=== PATIENT | female | born 1950 | race Caucasian/White ===

== ENCOUNTER 2018-01-22 13:07 | Inpatient (IN) | payer MEDICARE ==
[~2018-01-22] VITALS: Ht 167.6 cm; Wt 69.2 kg
[~2018-01-22 13:07] MED LIST: ASPIR 8181 MG; CRESTOR10 MG PO; LASIX40 MG PO; LEVEMIR100 UNIT/1; NEXIUM20 MG; NORCO 10MG-325MG1 EA; NOVOLOG100 UNIT/1; PLAVIX75 MG PO; SINGULAIR10 MG; ZIAC 5-6.25 MG1 EACH
--- OUTSIDE RECORDS SUMMARY | 2018-01-22 13:11 | XMS REPORT ---
Author Author [facility] [place] Address Unknown Phone Unavailable Care Team Providers Care Access Database Developer Name Role Phone DANIELELY HUDDLESTONHURI Unavailable Unavailable BAURSULA Unavailable Unavailable Problems This patient has no known problems. Allergies, Adverse Reactions, Alerts This patient has no known allergies or adverse reactions. Medications This patient has no known medications. Results Test Description Test Time Test Comments Text Results Atomic Results Result Comments BLOOD CULTURE 2017-07-06 07:41:00 Culture Observations (test code=COB1) NO GROWTH AFTER 5 DAYS BLOOD [id number] 07:41:00* Test Item Value Reference Range Comments Culture Observations (test code=COB1) NO GROWTH AFTER 5 DAYS GLUCOMETER GLUCOSE- LAB USE [id number] 16:19:00* Test Item Value Reference Range Comments GLUCOMETER (test code=GMG) 203 mg/dL 70-100 Meter ID: [id number]: [id number] AMRITA KEYESEL GLUCOMETER GLUCOSE- LAB USE [id number] 11:24:00* Test Item Value Reference Range Comments GLUCOMETER (test code=GMG) 240 mg/dL 70-100 Meter ID: [id number]: [id number] NASIMA MINKS GLUCOMETER GLUCOSE- LAB USE [id number] 06:16:00* Test Item Value Reference Range Comments GLUCOMETER (test code=GMG) 246 mg/dL 70-100 Meter ID: [id number]: 5304 ATIF RODRIGUEZ BASIC METABOLIC PANEL *WW*2017-07-02 06:09:00* Test Item Value Reference Range Comments GLUCOSE (test code=06D) 241 mg/dL 75-100 SODIUM (test code=01A) 137 mmol/L 136-145 POTASSIUM (test code=01B) 3.6 mmol/L 3.6-5.1 CHLORIDE (test code=04A) 100 mmol/L 98-107 CO2 (test code=02A) 31 mmol/L 22-32 ANION GAP (test code=ANG) 9.6 mmol/L BUN (test code=05D) 19 mg/dL 7-18 CREATININE (test code=03E) 0.6 mg/dL 0.4-1.1 BUN/CREA (test code=BCR) 31 12-20 CALCIUM (test code=09D) 7.5 mg/dL 8.3-9.5 CBC (INCLUDES AUTOMATED DIFFERENTIAL)*[id number] 05:48:00* Test Item Value Reference Range Comments WBC (test code=WBC) 7.1 10\S\3/uL 4.5-11.0 RBC (test code=RBC) 4.33 10\S\6/uL 3.80-5.80 HGB (test code=HBG) 13.3 g/dL 12.0-15.5 HCT (test code=HCT) 39.1 % 35.0-44.0 MCV (test code=MCV) 90.3 fL 81.0-99.0 MCH (test code=MCH) 30.7 pg 27.0-31.0 MCHC (test code=MCHC) 34.0 g/dL 32.0-36.0 RDW (test code=RDW) 12.4 % 11.5-14.5 PLT (test code=PLT) 202 10\S\3/uL 130-400 MPV (test code=MPV) 10.2 fL 9.4-12.4 NEUTROP # (test code=NE#) 3.9 10\S\3/uL 1.6-8.0 LYMPH # (test code=LY#) 2.4 10\S\3/uL 1.1-3.5 MONOCYTE # (test code=MO#) 0.7 10\S\3/uL 0.0-1.1 EOSINOPH # (test code=EO#) 0.1 10\S\3/uL 0.0-0.7 BASOPHIL # (test code=BA#) 0.0 10\S\3/uL 0.0-0.3 IG # (test code=IG#) 0.02 10\S\3/uL 0.00-0.06 NRBC # (test code=NRBC#) 0.00 10\S\3/uL 0.00-0.01 NEUTROPH % (test code=NE%) 54.5 % 35.0-73.0 LYMPH % (test code=LY%) 33.8 % 20.0-55.0 MONO % (test code=MO%) 9.7 % 2.5-10.0 EOSINOPH % (test code=EO%) 1.4 % 0.0-5.0 BASOPHIL % (test code=BA%) 0.3 % 0.0-2.0 IG % (test code=IG%) 0.3 % 0.0-0.8 NRBC% (test code=NRBC%) 0.0 % 0.0-0.2 MANDIFF (test code=WMDIFF) NO NO RBC MORPH (test code=WRBCMOR) NORMAL GLUCOMETER GLUCOSE- LAB USE [id number] 19:32:00* Test Item Value Reference Range Comments GLUCOMETER (test code=GMG) 256 mg/dL 70-100 Meter ID: [id number]: 5304 ATIF RODRIGUEZ GLUCOMETER GLUCOSE- LAB USE [id number] 15:48:00* Test Item Value Reference Range Comments GLUCOMETER (test code=GMG) 206 mg/dL 70-100 DAILY MAINTENANCEMeter ID: [id number]: 5354 NAYE NEW U/S CAROTID COLOR DOPPLER NIESHA*WW*2017-07-01 15:42:29Duplex carotid ultrasound.Clinical History: Syncope Comparison: None. [address] and Findings: Deras scale, color and pulsed Doppler imaging were utilized. There is approximately 54% luminal narrowing from hyperechoic atheroscleroticplaque at the left carotid bulb. Both carotid systems demonstrate normalwaveforms with brisk systolic upstrokes.The velocities on the right are as follows in cm/s:Common carotid artery peak systolic: 70.9 cm/ s.Common carotid artery end-diastolic 8.2 cm/s.Internal carotid artery peak systolic: 54.3 cm/s.Internal carotid artery end-diastolic: 10.1 cm/s.The velocities on the left are as follows:Common carotid artery peak systolic: 70.5 cm/s.Common carotid artery end-diastolic: 14.1 cm/s.Internal carotid artery peak systolic: 71.5 cm/s.Internal carotid artery end-diastolic: 12.9 cm/s.Both vertebral arteries demonstrate antegrade flow. The peak systolic velocity ICA/ CCA ratio on the right is 0.7 and on the left is0.9 . Impression:1. Hyperechoic atherosclerotic plaque at the left carotid bulb ofapproximately 54% stenosis. Otherwise, no evidence of hemodynamicallysignificant stenosis. Analysis is based on grayscale and velocity measurements which have beencorrelated with the NASCET criteria for measuring internal carotid arterystenosis.GLUCOMETER GLUCOSE- LAB USE [id number] 11:45:00* Test Item Value Reference Range Comments GLUCOMETER (test code=GMG) 279 mg/dL 70-100 DAILY MAINTENANCEMeter ID: [id number]: 5354 [facility] MRI BRAIN W/ AND W/O CONTRAST*WW*2017-07-01 08:11:27MRI brain with and without contrastLocation code: [id number] history: SyncopeTechnique: Multiplanar multisequence MR imaging of the brain was performed withand without contrast. 7 cc of intravenous Gadavist was administered.Findings: Fairly extensive chronic microvascular insults are present throughoutthe periventricular white matter and centrum semiovale bilaterally. There is noarea of restricted diffusion to suggest acute or recent infarct. There is noacute intracranial hemorrhage or extra-axial collection. There is no abnormalenhancement, mass, or lesion. There is no hydrocephalus, intracranial edema, ormidline shift. The posterior fossa and internal auditory canals are unremarkable. The orbits,globes, sinuses, and skull base are unremarkable.Impression: Extensive chronic microvascular insults throughout theperiventricular white matter and centrum semiovale bilaterally withoutenhancement or diffusion restriction.GLUCOMETER GLUCOSE- LAB USE [id number] 05:24:00* Test Item Value Reference Range Comments GLUCOMETER (test code=GMG) 207 mg/dL 70-100 Meter ID: [id number]: 5304 ATIF [facility] BASIC METABOLIC [id number] 04:31:00* Test Item Value Reference Range Comments GLUCOSE (test code=06D) 205 mg/dL 75-100 SODIUM (test code=01A) 141 mmol/L 136-145 POTASSIUM (test code=01B) 3.1 mmol/L 3.6-5.1 CHLORIDE (test code=04A) 103 mmol/L 98-107 CO2 (test code=02A) 30 mmol/L 22-32 ANION GAP (test code=ANG) 11.1 mmol/L BUN (test code=05D) 21 mg/dL 7-18 CREATININE (test code=03E) 0.7 mg/dL 0.4-1.1 BUN/CREA (test code=BCR) 29 12-20 CALCIUM (test code=09D) 7.2 mg/dL 8.3-9.5 CARDIAC PROFILE *WW*2017-07-01 04:18:00* Test Item Value Reference Range Comments TROPONIN I (test code=A84) <0.015 ng/mL 0.000-0.045 CKMB (test code=A49) <1.0 ng/mL <=3.6 CPK (test code=32A) 35 IU/L 26-192 LACTIC ACID WW2017-07-01 04:18:00* Test Item Value Reference Range Comments LACTIC ACD (test code=LA) 0.6 mmol/L 0.4-2.0 CBC (INCLUDES AUTOMATED DIFFERENTIAL)2017-07-01 04:06:00* Test Item Value Reference Range Comments WBC (test code=WBC) 6.5 10\S\3/uL 4.5-11.0 RBC (test code=RBC) 4.42 10\S\6/uL 3.80-5.80 HGB (test code=HBG) 13.6 g/dL 12.0-15.5 HCT (test code=HCT) 39.9 % 35.0-44.0 MCV (test code=MCV) 90.3 fL 81.0-99.0 MCH (test code=MCH) 30.8 pg 27.0-31.0 MCHC (test code=MCHC) 34.1 g/dL 32.0-36.0 RDW (test code=RDW) 12.5 % 11.5-14.5 PLT (test code=PLT) 233 10\S\3/uL 130-400 MPV (test code=MPV) 10.6 fL 9.4-12.4 NEUTROP # (test code=NE#) 2.7 10\S\3/uL 1.6-8.0 LYMPH # (test code=LY#) 3.0 10\S\3/uL 1.1-3.5 MONOCYTE # (test code=MO#) 0.6 10\S\3/uL 0.0-1.1 EOSINOPH # (test code=EO#) 0.2 10\S\3/uL 0.0-0.7 BASOPHIL # (test code=BA#) 0.1 10\S\3/uL 0.0-0.3 IG # (test code=IG#) 0.02 10\S\3/uL 0.00-0.06 NRBC # (test code=NRBC#) 0.00 10\S\3/uL 0.00-0.01 NEUTROPH % (test code=NE%) 41.3 % 35.0-73.0 LYMPH % (test code=LY%) 46.3 % 20.0-55.0 MONO % (test code=MO%) 8.8 % 2.5-10.0 EOSINOPH % (test code=EO%) 2.5 % 0.0-5.0 BASOPHIL % (test code=BA%) 0.8 % 0.0-2.0 IG % (test code=IG%) 0.3 % 0.0-0.8 NRBC% (test code=NRBC%) 0.0 % 0.0-0.2 MANDIFF (test code=MDIFF) NO NO RBC MORPH (test code=RBCMOR) NORMAL CARDIAC [id number] 22:43:00* Test Item Value Reference Range Comments TROPONIN I (test code=A84) <0.015 ng/mL 0.000-0.045 CKMB (test code=A49) <1.0 ng/mL <=3.6 CPK (test code=32A) 42 IU/L 26-192 LACTIC ACID WW2017-06-30 22:41:00* Test Item Value Reference Range Comments LACTIC ACD (test code=LA) 2.7 mmol/L 0.4-2.0 GLUCOMETER GLUCOSE- LAB USE [id number] 20:08:00* Test Item Value Reference Range Comments GLUCOMETER (test code=GMG) 257 mg/dL 70-100 Meter ID: [id number]: 5304 ATIF RODRIGUEZ URINALYSIS WITH MICRO 2017-06-30 17:47:00* Test Item Value Reference Range Comments COLOR (test code=COLU) YELLOW YELLOW CLARITY (test code=CLA) SLT HAZY CLEAR GLUCOSE UR (test code=UA GLUCOSE) 3+ NEGATIVE BILI UR (test code=BILE) NEGATIVE NEGATIVE KETONES UR (test code=HAM) NEGATIVE NEGATIVE SP GRAVITY (test code=SPGR) 1.025 1.005-1.030 PH UR (test code=PH) 6.0 4.5-8.0 PROTEIN UR (test code=PU) 2+ NEGATIVE UROBIL UR (test code=UROQ) 0.2 EU/dL 0.2-1.0 NITRITE UR (test code=NITRITE) NEGATIVE NEGATIVE BLOOD UR (test code=UA BLOOD) 1+ NEGATIVE LEUK ES UR (test code=LEUK) NEGATIVE NEGATIVE WBC UR (test code=UWBC) 5 /HPF 0-5 RBC UR (test code=URBC) 10 /HPF 0-2 EPITH UR (test code=UEPC) FEW /LPF FEW BACTERIA UR (test code=UBACT) MODERATE /HPF NONE CAST UR (test code=CAST) /LPF NONE CRYSTAL UR (test code=CRYU) / LPF NONE MUCUS UR (test code=MUC) / HPF NONE AMORPH UR (test code=GUERLINE) / HPF NONE TRICH UR (test code=UTRICH) /HPF NONE YEAST UR (test code=UY) /HPF NONE SPERM UR (test code=USPERM) /HPF NONE COMPREHENSIVE METABOLIC RUSHING 2017-06-30 16:45:00* Test Item Value Reference Range Comments GLUCOSE (test code=06D) 472 mg/dL 75-100 SODIUM (test code=01A) 135 mmol/L 136-145 POTASSIUM (test code=01B) 3.5 mmol/L 3.6-5.1 CHLORIDE (test code=04A) 96 mmol/L 98-107 CO2 (test code=02A) 31 mmol/L 22-32 ANION GAP (test code=ANG) 11.5 mmol/L BUN (test code=05D) 21 mg/dL 7-18 CREATININE (test code=03E) 1.0 mg/dL 0.4-1.1 BUN/CREA (test code=BCR) 20 12-20 CALCIUM (test code=09D) 7.6 mg/dL 8.3-9.5 BILI TOTAL (test code=11A) 0.4 mg/dL 0.2-1.0 PROTEIN (test code=07D) 6.3 g/dL 6.4-8.2 ALBUMIN (test code=08D) 2.3 g/dL 3.5-4.8 GLOBULIN (test code=GLB) 4.0 g/dL 1.5-3.8 ALB/GLOB (test code=AGRR) 0.6 1.0-2.6 ALK PHOS (test code=35A) 101 IU/L 42-121 AST (test code=30A) 14 IU/L <=42 ALT (test code=31A) 10 IU/L <=78 PRO TIME AND PTT *WW*2017-06-30 16:35:00* Test Item Value Reference Range Comments PT (test code=TT) 10.3 s 9.8-13.6 INR (test code=INR) 0.9 INRH (test code=INRH) SUGGESTED THERAPEUTIC RANGE FOR INR: 2.5 - 3.5 For Patients with Prosthetic Valves or Patients with recurrent Thromboembolic Events 2.0 - 3.0 For Most Other Applications PTT (test code=PTT) 25.7 s 20.2-38.0 PTTH (test code=PTTH) To monitor the effectiveness of heparin, we offer the Anti-Xa (Heparin Assay). It can be used for either unfractionated or LMW Heparin. Order Code is ANTI-XA CARDIAC PROFILE *WW*2017-06-30 16:25:00* Test Item Value Reference Range Comments TROPONIN I (test code=A84) <0.015 ng/mL 0.000-0.045 CKMB (test code=A49) <1.0 ng/mL <=3.6 CPK (test code=32A) 53 IU/L 26-192 LACTIC ACID WW2017-06-30 16:24:00* Test Item Value Reference Range Comments LACTIC ACD (test code=LA) 2.1 mmol/L 0.4-2.0 CBC (INCLUDES AUTOMATED DIFFERENTIAL)*[id number] 16:08:00* Test Item Value Reference Range Comments WBC (test code=WBC) 6.2 10\S\3/uL 4.5-11.0 RBC (test code=RBC) 4.97 10\S\6/uL 3.80-5.80 HGB (test code=HBG) 15.4 g/dL 12.0-15.5 HCT (test code=HCT) 44.5 % 35.0-44.0 MCV (test code=MCV) 89.5 fL 81.0-99.0 MCH (test code=MCH) 31.0 pg 27.0-31.0 MCHC (test code=MCHC) 34.6 g/dL 32.0-36.0 RDW (test code=RDW) 12.5 % 11.5-14.5 PLT (test code=PLT) 247 10\S\3/uL 130-400 MPV (test code=MPV) 10.7 fL 9.4-12.4 NEUTROP # (test code=NE#) 3.5 10\S\3/uL 1.6-8.0 LYMPH # (test code=LY#) 2.1 10\S\3/uL 1.1-3.5 MONOCYTE # (test code=MO#) 0.5 10\S\3/uL 0.0-1.1 EOSINOPH # (test code=EO#) 0.1 10\S\3/uL 0.0-0.7 BASOPHIL # (test code=BA#) 0.0 10\S\3/uL 0.0-0.3 IG # (test code=IG#) 0.02 10\S\3/uL 0.00-0.06 NRBC # (test code=NRBC#) 0.00 10\S\3/uL 0.00-0.01 NEUTROPH % (test code=NE%) 55.9 % 35.0-73.0 LYMPH % (test code=LY%) 34.3 % 20.0-55.0 MONO % (test code=MO%) 7.5 % 2.5-10.0 EOSINOPH % (test code=EO%) 1.5 % 0.0-5.0 BASOPHIL % (test code=BA%) 0.5 % 0.0-2.0 IG % (test code=IG%) 0.3 % 0.0-0.8 NRBC% (test code=NRBC%) 0.0 % 0.0-0.2 MANDIFF (test code=WMDIFF) NO NO RBC MORPH (test code=WRBCMOR) NORMAL CT HEAD W/O CONTRAST 2017-06-30 15:54:46CT Brain without contrast.Location code:[id number] HISTORY: syncopeComparison: 02/11/17Technique: Routine unenhanced CT brain was performed and submitted in 5mm axialimages. One or more of the following dose reduction techniques were used:Automated exposure control , adjustment of the mA and or KV according to patientsize, and/or utilization of iterative reconstruction technique. DLP: 1026.2 bymGy-cm.Findings:There is no acute intracranial hemorrhage or extra-axial collection. There isno hydrocephalus, midline shift, or space occupying mass. There is generalized volume loss with compensatory enlargement of the corticalsulci and cerebral ventricles. Moderate periventricular low attenuation isconsistent with chronic small vessel ischemic changes. Deras-white matterdifferentiation is otherwise normal with no definite CT evidence of an acuteinfarct.The cranial vault and skull base are intact. The paranasal sinuses and mastoidair cells are well- aerated.IMPRESSION: Moderate chronic small vessel ischemic changes with otherwise no acuteintracranial abnormality.XR CHEST 1 VIEW PORTABLE 15:53:42Portable AP chest, 1 viewLocation Code: [id number] HISTORY: syncopeCOMPARISON: NoneCOMMENT: The lungs are clear and well inflated. The costophrenic angles are sharp. Thecardiomediastinal silhouette is mildly enlarged. The bones are intact.IMPRESSION: Mild cardiomegaly.URINE [id number]- [id number] 11:43:00* Test Item Value Reference Range Comments Culture Observations (test code=COB1) THREE OR MORE SPECIES OF BACTERIA ISOLATED. PROBABLE CONTAMINATION. Culture Observations (test code=COB17) IDENTIFICATION AND SUSCEPTIBILITY NOT INDICATED. RECOLLECTION RECOMMENDED BRAIN NATRIURETIC PROTEIN 2017-04-27 16:39:00* Test Item Value Reference Range Comments proBNP (test code=PBNP) 2041 pg/mL 0-125 CARDIAC PROFILE 2017-04-27 16:33:00* Test Item Value Reference Range Comments TROPONIN I (test code=A84) <0.015 ng/mL 0.000-0.045 CKMB (test code=A49) <1.0 ng/mL <=3.6 CPK (test code=32A) 38 IU/L 26-192 COMPREHENSIVE METABOLIC RUSHING *WW*2017-04-27 16:33:00* Test Item Value Reference Range Comments GLUCOSE (test code=06D) 332 mg/dL 75-100 SODIUM (test code=01A) 143 mmol/L 136-145 POTASSIUM (test code=01B) 4.0 mmol/L 3.6-5.1 CHLORIDE (test code=04A) 104 mmol/L 98-107 CO2 (test code=02A) 31 mmol/L 22-32 ANION GAP (test code=ANG) 12.0 mmol/L BUN (test code=05D) 14 mg/dL 7-18 CREATININE (test code=03E) 0.7 mg/dL 0.4-1.1 BUN/CREA (test code=BCR) 21 12-20 CALCIUM (test code=09D) 8.4 mg/dL 8.3-9.5 BILI TOTAL (test code=11A) 0.4 mg/dL 0.2-1.0 PROTEIN (test code=07D) 5.6 g/dL 6.4-8.2 ALBUMIN (test code=08D) 2.4 g/dL 3.5-4.8 GLOBULIN (test code=GLB) 3.2 g/dL 1.5-3.8 ALB/GLOB (test code=AGRR) 0.8 1.0-2.6 ALK PHOS (test code=35A) 75 IU/L 42-121 AST (test code=30A) 12 IU/L <=42 ALT (test code=31A) 12 IU/L <=78 URINALYSIS WITH MICRO 2017-04-27 16:33:00* Test Item Value Reference Range Comments COLOR (test code=COLU) YELLOW YELLOW CLARITY (test code=CLA) HAZY CLEAR GLUCOSE UR (test code=UA GLUCOSE) 3+ NEGATIVE BILI UR (test code=BILE) NEGATIVE NEGATIVE KETONES UR (test code=HAM) NEGATIVE NEGATIVE SP GRAVITY (test code=SPGR) 1.020 1.005-1.030 PH UR (test code=PH) 6.5 4.5-8.0 PROTEIN UR (test code=PU) 3+ NEGATIVE UROBIL UR (test code=UROQ) 0.2 EU/dL 0.2-1.0 NITRITE UR (test code=NITRITE) NEGATIVE NEGATIVE BLOOD UR (test code=UA BLOOD) 3+ NEGATIVE LEUK ES UR (test code=LEUK) TRACE NEGATIVE WBC UR (test code=UWBC) 80 /HPF 0-5 RBC UR (test code=URBC) 10 /HPF 0-2 EPITH UR (test code=UEPC) MODERATE /LPF FEW BACTERIA UR (test code=UBACT) MANY /HPF NONE CAST UR (test code=CAST) /LPF NONE CRYSTAL UR (test code=CRYU) / LPF NONE MUCUS UR (test code=MUC) / HPF NONE AMORPH UR (test code=GUERLINE) / HPF NONE TRICH UR (test code=UTRICH) /HPF NONE YEAST UR (test code=UY) /HPF NONE SPERM UR (test code=USPERM) /HPF NONE CBC (INCLUDES AUTOMATED DIFFERENTIAL)*[id number] 16:19:00* Test Item Value Reference Range Comments WBC (test code=WBC) 7.7 10\S\3/uL 4.5-11.0 RBC (test code=RBC) 5.35 10\S\6/uL 3.80-5.80 HGB (test code=HBG) 16.4 g/dL 12.0-15.5 HCT (test code=HCT) 47.7 % 35.0-44.0 MCV (test code=MCV) 89.2 fL 81.0-99.0 MCH (test code=MCH) 30.7 pg 27.0-31.0 MCHC (test code=MCHC) 34.4 g/dL 32.0-36.0 RDW (test code=RDW) 12.7 % 11.5-14.5 PLT (test code=PLT) 239 10\S\3/uL 130-400 MPV (test code=MPV) 10.5 fL 9.4-12.4 NEUTROP # (test code=NE#) 4.5 10\S\3/uL 1.6-8.0 LYMPH # (test code=LY#) 2.4 10\S\3/uL 1.1-3.5 MONOCYTE # (test code=MO#) 0.7 10\S\3/uL 0.0-1.1 EOSINOPH # (test code=EO#) 0.2 10\S\3/uL 0.0-0.7 BASOPHIL # (test code=BA#) 0.0 10\S\3/uL 0.0-0.3 IG # (test code=IG#) 0.03 10\S\3/uL 0.00-0.06 NRBC # (test code=NRBC#) 0.00 10\S\3/uL 0.00-0.01 NEUTROPH % (test code=NE%) 57.8 % 35.0-73.0 LYMPH % (test code=LY%) 30.7 % 20.0-55.0 MONO % (test code=MO%) 8.4 % 2.5-10.0 EOSINOPH % (test code=EO%) 2.2 % 0.0-5.0 BASOPHIL % (test code=BA%) 0.5 % 0.0-2.0 IG % (test code=IG%) 0.4 % 0.0-0.8 NRBC% (test code=NRBC%) 0.0 % 0.0-0.2 MANDIFF (test code=WMDIFF) NO NO RBC MORPH (test code=WRBCMOR) NORMAL CT HEAD W/O CONTRAST *WW*2017-02-11 22:26:18AFTER HOURS SERVICE ON: 02/11/2017 10 :24 PMCT Scan of the Brain Without ContrastLocation Code [id number]: fall,head injury.Technique: Scans were performed on a helical scanner pre IV contrast only. Thestudy is limited secondary to lack of intravenous contrast, particularly forevaluation of masses. CT images were performed within 24 hours at arrival tot facility. One or more of the following dose reduction techniques were used: Automatedexposure control, adjustment of the mA and/or kV according to patient size,and/or utilization of iterative reconstruction technique.Findings: There is no hydrocephalus. Basal cisterns are patent. There is no intracranialhyperdense hemorrhage. There is no midline shift or mass effect. No effacementof the deras-white matter junction to indicate acute infarction. There arechronic ischemic white matter changes. Small lacunar infarct is noted in theright caudate nucleus. There is no skull fracture. Minimal fluid attenuation isnoted in the left mastoid air cells.Impression:No acute intracranial CT findings.Senescent changes.XR RIBS RT UNIL 3VW W/PA CHEST* WW*2017-02-11 22:25:06RIBS right 3 viewsLocation Code: I24Ktirbfsdng: None availableCLINICAL HISTORY: Fall, pain.Findings: The cardiomediastinal silhouette is within normal limits. No pulmonary edema,pleural effusion or consolidation. No definite right-sided rib fracture isdemonstrated although severe qualitative osteopenia limits evaluation.IMPRESSION: No acute cardiopulmonary abnormalityNo definite right-sided rib fracture is demonstrated although severequalitative osteopenia limits evaluation.
[2018-01-22] MEDS ORDERED: ALBUTEROL/IPRATROPIUM 3 ML NEB NEB ONE (13:30)
--- NOTE | 2018-01-22 14:45 | Diagnostic Imaging Report ---
PROCEDURE:CHEST 2 VIEWS TECHNIQUE:PA and lateral chest INDICATION:Pneumonia; shortness of breath COMPARISON:None. FINDINGS: Symmetric hyperinflation. Right lower lobe airspace opacity at the lung base. Normal heart size. Subacute fractures of the left ribs. CONCLUSION: Right basilar airspace opacity consistent with pneumonia in the appropriate context. Air trapping consistent with COPD. Dictated by: Epifanio Guardado M.D. on 01/22/2018 at 14:46 Electronically approved by: Epifanio Guardado M.D. on 01/22/2018 at 14:46
[2018-01-22 15:59] LABS: BASOPHILS % 0.2 % (0.0-1.0); HEMOGLOBIN 12.5 g/dL (12.0-16.0); LYMPHOCYTES # (AUTO) 1.3 (1.0-3.2); LYMPHOCYTES % 12.9 % (18.0-39.1); MEAN CORPUSCULAR HEMOGLOBIN 30.6 pg (28-32); MEAN CORPUSCULAR HGB CONC 33.8 g/dL (31-35); MEAN CORPUSCULAR VOLUME 90.5 fL (81-99); MONOCYTES # (AUTO) 0.7 (0.2-0.8); MONOCYTES % 6.8 % (4.4-11.3); NEUTROPHILS # (AUTO) 8.3 (2.1-6.9); NEUTROPHILS % 79.8 % (38.7-80.0); PLATELET COUNT 274 x10e3/uL (140-360); RED BLOOD COUNT 4.09 x10e6/uL (3.6-5.1); RED CELL DISTRIBUTION WIDTH 13.5 % (11.7-14.4)
[2018-01-22] MEDS ORDERED: AZITHROMYCIN 500MG/SOD CHL 0.9% 250ML BAG IV SCH (16:00)
[2018-01-22] MEDS ORDERED: AZITHROMYCIN 500MG/NS 250 ML 250 ML IV ONE (16:00)
[2018-01-22] MEDS ORDERED: CEFTRIAXONE SOD 1 GM VIAL IV ONE (16:00)
[2018-01-22] MEDS ORDERED: LOPRESSOR25 MG PO (16:09)
[2018-01-22] MEDS ORDERED: CYMBALTA30 MG PO (16:09)
[2018-01-22] MEDS ORDERED: LOSARTAN POTASS50 MG PO (16:09)
[2018-01-22] MEDS ORDERED: MONTELUKAST SOD10 MG PO (16:09)
[2018-01-22] MEDS ORDERED: FENOFIBRATE145 MG PO (16:09)
[2018-01-22] MEDS ORDERED: FUROSEMIDE40 MG PO (16:09)
[2018-01-22] MEDS ORDERED: ALPRAZOLAM1 MG PO (16:09)
[2018-01-22 16:15] LABS: ALBUMIN 2.5 g/dL (3.5-5.0); ALBUMIN/GLOBULIN RATIO 0.6 (0.8-2.0); ANION GAP 14.3 mmol/L (8-16); CALCIUM 8.9 mg/dL (8.4-10.2); CREATININE, SERUM 1.26 mg/dL (0.57-1.11); POTASSIUM 4.3 mmol/L (3.5-5.1)
[2018-01-22] MEDS: NICOTINE 7 MG PATCH TOP SCH (16:16)
[2018-01-22] MEDS ORDERED: KETOROLAC TROMETHAMINE 30 MG/ML VIAL IV STA (16:21)
[2018-01-22] MEDS ORDERED: TRAMADOL HCL 50 MG TAB PO ONE (16:45)
[2018-01-22] MEDS: SODIUM CHLORIDE 0.9% 1000ML 1,000 ML IV SCH (16:58)
[2018-01-22] MEDS: ALBUTEROL SULF 0.083% NEB SOLN 3 ML NEB NEB SCH (19:00)
[2018-01-22] MEDS: IPRATROPIUM BROMIDE 0.02% 2.5 ML NEB NEB SCH (19:00)
[2018-01-22 21:00] VITALS: BP 132/62
[2018-01-22 21:15] VITALS: BP 132/62
[2018-01-23] VITALS (8 sets, daily range): BP systolic 128–209; BP diastolic 59–102
[2018-01-23] MEDS: ALBUTEROL SULF 0.083% NEB SOLN 3 ML NEB NEB SCH ×3 (00:05→07:00)
[2018-01-23] MEDS: IPRATROPIUM BROMIDE 0.02% 2.5 ML NEB NEB SCH ×2 (00:05→07:00)
[2018-01-23] MEDS: SODIUM CHLORIDE 0.9% 1000ML 1,000 ML IV SCH (02:50)
[2018-01-23 06:56] LABS: BASOPHILS % 0.1 % (0.0-1.0); EOSINOPHILS % 0.3 % (0.0-6.0); HEMATOCRIT 31.1 % (34.2-44.1); HEMOGLOBIN 10.2 g/dL (12.0-16.0); LYMPHOCYTES # (AUTO) 1.6 (1.0-3.2); LYMPHOCYTES % 16.9 % (18.0-39.1); MEAN CORPUSCULAR HEMOGLOBIN 29.7 pg (28-32); MEAN CORPUSCULAR HGB CONC 32.8 g/dL (31-35); MEAN CORPUSCULAR VOLUME 90.4 fL (81-99); MONOCYTES # (AUTO) 0.8 (0.2-0.8); NEUTROPHILS # (AUTO) 6.9 (2.1-6.9); NEUTROPHILS % 73.5 % (38.7-80.0); PLATELET COUNT 215 x10e3/uL (140-360); RED BLOOD COUNT 3.44 x10e6/uL (3.6-5.1); RED CELL DISTRIBUTION WIDTH 13.5 % (11.7-14.4)
[2018-01-23 07:34] LABS: ALBUMIN/GLOBULIN RATIO 0.5 (0.8-2.0); ANION GAP 13.4 mmol/L (8-16); CALCIUM 8.1 mg/dL (8.4-10.2); CREATININE, SERUM 1.72 mg/dL (0.57-1.11); POTASSIUM 4.4 mmol/L (3.5-5.1)
--- NOTE | 2018-01-23 08:40 | Diagnostic Imaging Report ---
EXAM: CHEST 2 VIEWS, PA and lateral DATE: 01/23/2018 5:00 AM Time stamp on exam: 6:37 AM INDICATION: Cough COMPARISON: 01/22/2018 FINDINGS: LINES/TUBES: None LUNGS: Linear atelectasis in the right lung base. Increased opacity in the left lung base. No pulmonary edema. PLEURA: Small left pleural effusion. HEART AND MEDIASTINUM: Normal size and contour. BONES AND SOFT TISSUES: No acute findings. Degenerative changes of the spine. IMPRESSION: 1. Opacity in the left lung base may represent pneumonia. 2. There is a left pleural effusion. Signed by: Dr. Filemon Jean DO on 01/23/2018 8:36 AM
[2018-01-23] MEDS ORDERED: ALPRAZOLAM 1 MG TAB PO PRN (08:45)
[2018-01-23] MEDS ORDERED: ALBUTEROL/IPRATROPIUM 3 ML NEB NEB PRN (08:45)
[2018-01-23] MEDS ORDERED: DEXTROSE 50% SYRINGE 50 ML IV PRN (08:45)
[2018-01-23] MEDS ORDERED: CEFTRIAXONE SOD 1 GM/NS 50 ML 50 ML IV SCH (08:45)
[2018-01-23] MEDS ORDERED: METOPROLOL TARTRATE 25 MG TAB PO SCH (09:00)
--- NOTE | 2018-01-23 09:13 | History and Physical ---
PRIMARY CARE PROVIDER: Genaro CHIEF COMPLAINT: Fever and cough since last Sunday, increasing shortness of breath. The patient is a smoker. She had pneumonia. HISTORY: This is a 67-year-old female with baseline COPD, hypertension and coronary disease with previous stent back in 2015 came in with increasing shortness of breath, cough and fever. Patient had a workup done. Chest x-ray showed that she has an infiltrate to the right side. It is pneumonia. She also has COPD as well. Patient is a smoker for many years. She denies alcohol usage. She had a fever and difficulty breathing. Failed outpatient treatment at home. Her blood pressure when she came in was 95/54. It is stable at this time. PAST MEDICAL HISTORY: COPD, coronary disease, osteoarthritis, depression, coronary disease with previous stent, hyperlipidemia. PAST SURGICAL HISTORY: Noncontributory. SOCIAL HISTORY: Patient is a smoker for many years. She does not use alcohol. ALLERGIES: CABBAGE, STRAWBERRIES, EGGS, ASPARAGUS, ASPIRIN, MORPHINE, NIACIN, PENICILLIN, AND BUSPIRONE. HOME MEDICATIONS: Xanax, Plavix, Cymbalta, fenofibrate, Lasix, losartan, metoprolol, and Singulair. REVIEW OF SYSTEMS: As mentioned above, including pain to the lower extremities. PHYSICAL EXAMINATION VITAL SIGNS: T-max is 99, blood pressure 140/59, pulse rate is 72, respirations 18. GENERAL: The patient is not in any distress. HEENT: Normocephalic, atraumatic and anicteric. NECK: Supple grossly. PULMONARY: Diminished breath sounds bilaterally, more on the right compared the left. Wheezing bilateral lung in upper and lower lung ureña. CARDIOVASCULAR: Regular rate and rhythm. Distant heart sounds. ABDOMEN: Soft and unremarkable. EXTREMITIES: No cyanosis or edema. NEUROLOGIC: No focal deficit. LABORATORY: WBC is 9.4, hemoglobin 10, hematocrit 31, and platelets 215,000. Sodium 139, potassium 4.4, chloride 101, bicarb 29, BUN 57, creatinine 1.7, glucose is 295. IMPRESSION 1. Acute exacerbation of chronic obstructive pulmonary disease. 2. Right lower lobe pneumonia. 3. Hyperglycemia. 4. Smoker. 5. History of coronary disease. PLAN: IV steroids. Insulin sliding scale coverage. Hemoglobin A1c. Antibiotics. Nebulizer treatment. CT of the chest without IV contrast. Consultation with Dr. Lamb for pulmonary disease. Job#: [id number]
[2018-01-23] MEDS: CEFTRIAXONE SOD 1 GM VIAL IV SCH (10:14)
[2018-01-23] MEDS: DULOXETINE HCL 30 MG DELAYED RELEASE PO SCH (10:14)
[2018-01-23] MEDS: HYDROCODONE/APAP 7.5MG-325MG 1 EA TAB PO PRN ×2 (10:14→16:09)
[2018-01-23] MEDS: METHYLPREDNISOLONE SOD SUCC 40 MG/ML VIAL IV SCH ×2 (10:14→20:44)
[2018-01-23] MEDS: CLOPIDOGREL BISULFATE 75 MG TAB PO SCH (10:14)
[2018-01-23] MEDS: METOPROLOL SUCCINATE 50 MG TAB XL PO SCH (10:15)
[2018-01-23] MEDS: FENOFIBRATE 145 MG TAB PO SCH (10:15)
[2018-01-23] MEDS: MONTELUKAST SODIUM 10 MG TAB PO SCH (10:15)
--- NOTE | 2018-01-23 10:43 | Diagnostic Imaging Report ---
PROCEDURE: CT CHEST WITHOUT CONTRAST CT scan of the chest WITHOUT intravenous contrast, using standard protocol. TECHNIQUE: The chest was scanned utilizing a multidetector helical scanner from the apex to the level of the adrenal glands. No IV contrast was administered. Coronal and sagittal multiplanar reformations were obtained. DLP: 421.32 mGy-cm COMPARISON: Chest radiograph 01/23/2018 INDICATIONS: Pneumonia FINDINGS: Lines/tubes: None. Lungs and Airways: Mild apical predominant centrilobular emphysema. Scattered bilateral lower lobe predominant patchy and ground glass opacities. Lower lobe bronchial wall thickening and mucus plugging. Few calcified granulomas. Pleura: Small bilateral pleural effusions. Heart and mediastinum: The thyroid gland is normal. Borderline enlarged mediastinal lymph nodes measure up to 1 cm, likely reactive. Calcified mediastinal lymph nodes related to prior granulomatous disease. Trace pericardial effusion. Low attenuation of the blood pool suggests anemia. Main pulmonary artery is enlarged measuring 3.5 cm in diameter. Three-vessel coronary artery and aortic calcifications. Ascending aorta measures 3.7 cm. Soft tissues: Normal. Abdomen: Limited views of the upper abdomen show no abnormality within the visualized liver, spleen, pancreas, or kidneys. The adrenal glands are normal. Bones: Multiple old left fractures. Multilevel degenerative changes of the spine. IMPRESSION: 1. Lower lobe predominant patchy and ground glass opacities concerning for pneumonia. 2. Bronchial wall thickening and mucus plugging suggests superimposed bronchitis. 3. Small bilateral pleural effusions. 4. Emphysematous changes. 5. Enlarged main pulmonary artery suggestive of pulmonary hypertension. Dictated by: Uli Dacosta M.D. on 01/23/2018 at 10:43 Electronically approved by: Uli Dacosta M.D. on 01/23/2018 at 10:43
[2018-01-23] MEDS: INSULIN LISPRO 100 UNIT/1 ML 3ML VIAL SQ SCH ×3 (11:30→20:44)
[2018-01-23] MEDS: ALBUTEROL/IPRATROPIUM 3 ML NEB NEB SCH ×2 (16:00→19:36)
[2018-01-23] MEDS: NICOTINE 7 MG PATCH TOP SCH (16:00)
[2018-01-23] MEDS ORDERED: NIFEDIPINE CR 30 MG TAB PO ONE (16:30)
[2018-01-23] MEDS: AZITHROMYCIN 500MG/NS 250 ML 250 ML IV SCH (16:44)
--- NOTE | 2018-01-23 19:27 | Consultation ---
DATE OF CONSULTATION: January 23, 2018 PULMONARY CONSULTATION REASON FOR CONSULTATION: COPD, shortness of breath. HPI: Ms. Zuluaga is a 67-year-old female. She presented to the emergency room with shortness of breath and was admitted by Dr. Davis this morning. She smoked a pack a day for the last 42 years and quit for 12 years and restarted. She started having worsening shortness of breath and right-sided chest discomfort and wheezing and so she came to the emergency room. She has home oxygen which she uses as needed. REVIEW OF SYSTEMS: GENERAL: Denies any fever or chills. HEENT: Denies any head trauma. ENT denies any earache. CVS: Denies any chest pain. RESPIRATORY: Shortness of breath. GI: Denies any nausea or vomiting/ MUSCULOSKELETAL: Denies any arthralgias or myalgias. NEURO: Denies any focal weakness. The rest of the review of systems are negative except as in history of present illness. PAST MEDICAL HISTORY: COPD, coronary artery disease, arthritis, depression and hyperlipidemia., PAST SURGICAL HISTORY: Surgery on the toe and complete hysterectomy for cancer of the uterus. FAMILY AND SOCIAL HISTORY: History of smoking for 42 years, quit 12 years ago and no restarted it. She denies any alcohol use. She lives with her sister. She has grown children. ALLERGIES: CABBAGE, STRAWBERRIES, EGGS, ASPIRIN, MORPHINE, NIACIN, PENICILLIN. PHYSICAL EXAMINATION: VITALS: Temperature 98.7, pulse of 82, blood pressure 196/77, respiratory rate of 18. O2 sat 98% on 2 liters. SKIN: Warm and dry. HEENT: Head atraumatic, normocephalic. Pupils are reactive. NECK: Supple. CHEST: Crackles and wheezing bilaterally. HEART: S1 S2 audible. ABDOMEN: Soft, nontender and nondistended. EXTREMITIES: No clubbing, cyanosis or edema. NEUROLOGIC: Awake and alert. No focal neurologic deficit. LABORATORY DATA: White count of 9000, hemoglobin 10.2, platelets 215,000. Chemistry: Sodium 139, potassium 4.4, chloride 101. Bicarb 29. BUN 57, creatinine 1.72. On presentation the creatinine was 1.26. CT of the chest, I reviewed the film as showing left lower lobe pneumonia and emphysematous changes. ASSESSMENT AND PLAN: Ms. Zuluaga is a 67-year-old female who is admitted with left lower lobe pneumonia and chronic obstructive pulmonary disease exacerbation. PLAN: 1. I agree with IV Rocephin and azithromycin. 2. Continue Solu-Medrol. She is already on nebulizer treatment which will be continued. 3. Oxygen as needed to keep the O2 sat more than or equal to 92%. Thank you for this consult. Job#: [id number]
[2018-01-23] MEDS ORDERED: INSULIN DETEMIR 100 UNIT/ML PEN SQ ONE (20:30)
[2018-01-23] MEDS: ALPRAZOLAM 0.25 MG TAB PO PRN (20:44)
[2018-01-23] MEDS: NIFEDIPINE CR 30 MG TAB PO SCH (20:44)
[2018-01-24] VITALS (8 sets, daily range): BP systolic 120–176; BP diastolic 59–87
[2018-01-24] MEDS: ALBUTEROL/IPRATROPIUM 3 ML NEB NEB SCH ×4 (02:05→19:16)
[2018-01-24] MEDS: HYDROCODONE/APAP 7.5MG-325MG 1 EA TAB PO PRN ×2 (04:53→18:02)
[2018-01-24] MEDS: INSULIN LISPRO 100 UNIT/1 ML 3ML VIAL SQ SCH ×4 (07:30→21:31)
[2018-01-24] MEDS: MONTELUKAST SODIUM 10 MG TAB PO SCH (08:42)
[2018-01-24] MEDS: NIFEDIPINE CR 30 MG TAB PO SCH ×2 (08:42→21:29)
[2018-01-24] MEDS: DULOXETINE HCL 30 MG DELAYED RELEASE PO SCH (08:42)
[2018-01-24] MEDS: CLOPIDOGREL BISULFATE 75 MG TAB PO SCH (08:42)
[2018-01-24] MEDS: CEFTRIAXONE SOD 1 GM VIAL IV SCH (08:42)
[2018-01-24] MEDS: FENOFIBRATE 145 MG TAB PO SCH (08:42)
[2018-01-24] MEDS: METOPROLOL SUCCINATE 50 MG TAB XL PO SCH (08:42)
[2018-01-24] MEDS: METHYLPREDNISOLONE SOD SUCC 40 MG/ML VIAL IV SCH ×2 (08:42→21:29)
[2018-01-24] MEDS: NICOTINE 7 MG PATCH TOP SCH (15:49)
[2018-01-24] MEDS: AZITHROMYCIN 500MG/NS 250 ML 250 ML IV SCH (16:00)
[2018-01-24] MEDS: NAPROXEN 250 MG TAB PO SCH (16:00)
[2018-01-24] MEDS: HEPARIN SOD (PORCINE) 5,000 UNIT/ML VIAL SC SCH (21:30)
[2018-01-24] MEDS: INSULIN DETEMIR 100 UNIT/ML PEN SQ SCH (21:31)
[2018-01-25] VITALS (7 sets, daily range): BP systolic 135–155; BP diastolic 61–70
[2018-01-25] MEDS: ALBUTEROL/IPRATROPIUM 3 ML NEB NEB SCH ×4 (00:52→19:45)
[2018-01-25 06:54] LABS: BASOPHILS % 0.1 % (0.0-1.0); HEMATOCRIT 33.7 % (34.2-44.1); HEMOGLOBIN 11.3 g/dL (12.0-16.0); LYMPHOCYTES # (AUTO) 0.8 (1.0-3.2); LYMPHOCYTES % 6.6 % (18.0-39.1); MEAN CORPUSCULAR HEMOGLOBIN 29.8 pg (28-32); MEAN CORPUSCULAR HGB CONC 33.5 g/dL (31-35); MEAN CORPUSCULAR VOLUME 88.9 fL (81-99); MONOCYTES # (AUTO) 0.3 (0.2-0.8); MONOCYTES % 2.1 % (4.4-11.3); NEUTROPHILS # (AUTO) 10.9 (2.1-6.9); NEUTROPHILS % 90.9 % (38.7-80.0); PLATELET COUNT 301 x10e3/uL (140-360); RED BLOOD COUNT 3.79 x10e6/uL (3.6-5.1); RED CELL DISTRIBUTION WIDTH 13.2 % (11.7-14.4)
[2018-01-25 07:19] LABS: ANION GAP 13.1 mmol/L (8-16); CALCIUM 8.7 mg/dL (8.4-10.2); CREATININE, SERUM 1.52 mg/dL (0.57-1.11)
[2018-01-25 07:23] LABS: POTASSIUM 6.1 mmol/L (3.5-5.1)
[2018-01-25] MEDS: PANTOPRAZOLE SOD 40 MG TABEC PO SCH (07:30)
[2018-01-25] MEDS: INSULIN LISPRO 100 UNIT/1 ML 3ML VIAL SQ SCH ×4 (07:30→20:57)
[2018-01-25] MEDS ORDERED: SOD POLYSTYRENE SULFONATE SUSP 15 GM/60 ML BTL PO ONE (09:00)
[2018-01-25] MEDS: HEPARIN SOD (PORCINE) 5,000 UNIT/ML VIAL SC SCH ×2 (09:00→20:56)
[2018-01-25] MEDS: METHYLPREDNISOLONE SOD SUCC 40 MG/ML VIAL IV SCH ×2 (09:40→20:58)
[2018-01-25] MEDS: DULOXETINE HCL 30 MG DELAYED RELEASE PO SCH (09:40)
[2018-01-25] MEDS: CEFTRIAXONE SOD 1 GM VIAL IV SCH (09:40)
[2018-01-25] MEDS: NIFEDIPINE CR 30 MG TAB PO SCH ×2 (09:41→20:55)
[2018-01-25] MEDS: FENOFIBRATE 145 MG TAB PO SCH (09:41)
[2018-01-25] MEDS: MONTELUKAST SODIUM 10 MG TAB PO SCH (09:41)
[2018-01-25] MEDS: NAPROXEN 250 MG TAB PO SCH ×2 (09:41→17:26)
[2018-01-25] MEDS: CLOPIDOGREL BISULFATE 75 MG TAB PO SCH (09:41)
[2018-01-25] MEDS: METOPROLOL SUCCINATE 50 MG TAB XL PO SCH (09:41)
[2018-01-25] MEDS ORDERED: FUROSEMIDE INJ 10 MG/ML 4 ML VIAL IV ONE (14:30)
[2018-01-25] MEDS ORDERED: GUAIFENESIN/CODEINE 10 ML CUP PO PRN (14:30)
[2018-01-25] MEDS: NICOTINE 7 MG PATCH TOP SCH (16:00)
[2018-01-25] MEDS: AZITHROMYCIN 500MG/NS 250 ML 250 ML IV SCH (16:37)
[2018-01-25] MEDS: INSULIN DETEMIR 100 UNIT/ML PEN SQ SCH (20:58)
[2018-01-25] MEDS: HYDROCODONE/APAP 7.5MG-325MG 1 EA TAB PO PRN (21:04)
[2018-01-25] MEDS ORDERED: METHYLPREDNISOLONE SOD SUCC 40 MG/ML VIAL IV SCH (22:00)
[2018-01-26] VITALS (9 sets, daily range): BP systolic 119–166; BP diastolic 58–80
[2018-01-26] MEDS: ALBUTEROL/IPRATROPIUM 3 ML NEB NEB SCH ×4 (01:02→19:00)
[2018-01-26] MEDS: METHYLPREDNISOLONE SOD SUCC 40 MG/ML VIAL IV SCH ×2 (06:13→16:42)
[2018-01-26 06:54] LABS: HEMOGLOBIN 11.2 g/dL (12.0-16.0); LYMPHOCYTES # (AUTO) 1.1 (1.0-3.2); LYMPHOCYTES % 14.4 % (18.0-39.1); MEAN CORPUSCULAR HEMOGLOBIN 30.1 pg (28-32); MEAN CORPUSCULAR HGB CONC 33.9 g/dL (31-35); MEAN CORPUSCULAR VOLUME 88.7 fL (81-99); MONOCYTES # (AUTO) 0.4 (0.2-0.8); MONOCYTES % 4.6 % (4.4-11.3); NEUTROPHILS # (AUTO) 6.1 (2.1-6.9); NEUTROPHILS % 80.5 % (38.7-80.0); PLATELET COUNT 333 x10e3/uL (140-360); RED BLOOD COUNT 3.72 x10e6/uL (3.6-5.1); RED CELL DISTRIBUTION WIDTH 13.2 % (11.7-14.4)
[2018-01-26 07:15] LABS: CALCIUM 8.6 mg/dL (8.4-10.2); CREATININE, SERUM 1.28 mg/dL (0.57-1.11); POTASSIUM 4.9 mmol/L (3.5-5.1)
[2018-01-26 07:29] LABS: ANION GAP 11.9 mmol/L (8-16)
[2018-01-26] MEDS: INSULIN LISPRO 100 UNIT/1 ML 3ML VIAL SQ SCH ×4 (07:30→21:16)
[2018-01-26] MEDS: PANTOPRAZOLE SOD 40 MG TABEC PO SCH (07:55)
[2018-01-26] MEDS: NAPROXEN 250 MG TAB PO SCH ×2 (07:56→16:39)
[2018-01-26] MEDS: CEFTRIAXONE SOD 1 GM VIAL IV SCH (07:56)
[2018-01-26] MEDS: CLOPIDOGREL BISULFATE 75 MG TAB PO SCH (07:56)
[2018-01-26] MEDS: DULOXETINE HCL 30 MG DELAYED RELEASE PO SCH (07:56)
[2018-01-26] MEDS: FENOFIBRATE 145 MG TAB PO SCH (07:57)
[2018-01-26] MEDS: NIFEDIPINE CR 30 MG TAB PO SCH ×2 (07:57→20:35)
[2018-01-26] MEDS: MONTELUKAST SODIUM 10 MG TAB PO SCH (07:57)
[2018-01-26] MEDS: METOPROLOL SUCCINATE 50 MG TAB XL PO SCH (07:57)
[2018-01-26] MEDS: HEPARIN SOD (PORCINE) 5,000 UNIT/ML VIAL SC SCH ×2 (07:58→21:16)
[2018-01-26] MEDS: NICOTINE 7 MG PATCH TOP SCH (16:00)
[2018-01-26] MEDS: AZITHROMYCIN 500MG/NS 250 ML 250 ML IV SCH (16:38)
[2018-01-26] MEDS: HYDROCODONE/APAP 7.5MG-325MG 1 EA TAB PO PRN (19:25)
[2018-01-26] MEDS: INSULIN DETEMIR 100 UNIT/ML PEN SQ SCH (21:17)
[2018-01-27] VITALS (7 sets, daily range): BP systolic 145–189; BP diastolic 72–145
[2018-01-27] MEDS: HYDROCODONE/APAP 7.5MG-325MG 1 EA TAB PO PRN ×3 (04:25→20:53)
[2018-01-27] MEDS: PANTOPRAZOLE SOD 40 MG TABEC PO SCH (07:30)
[2018-01-27] MEDS: INSULIN LISPRO 100 UNIT/1 ML 3ML VIAL SQ SCH ×4 (07:30→21:50)
[2018-01-27] MEDS: ALBUTEROL/IPRATROPIUM 3 ML NEB NEB SCH ×4 (07:38→18:55)
[2018-01-27] MEDS: FENOFIBRATE 145 MG TAB PO SCH (09:16)
[2018-01-27] MEDS: NIFEDIPINE CR 30 MG TAB PO SCH ×2 (09:16→20:47)
[2018-01-27] MEDS: MONTELUKAST SODIUM 10 MG TAB PO SCH (09:16)
[2018-01-27] MEDS: CLOPIDOGREL BISULFATE 75 MG TAB PO SCH (09:16)
[2018-01-27] MEDS: CEFTRIAXONE SOD 1 GM VIAL IV SCH (09:16)
[2018-01-27] MEDS: NAPROXEN 250 MG TAB PO SCH ×2 (09:16→17:08)
[2018-01-27] MEDS: METOPROLOL SUCCINATE 50 MG TAB XL PO SCH (09:16)
[2018-01-27] MEDS: DULOXETINE HCL 30 MG DELAYED RELEASE PO SCH (09:16)
[2018-01-27] MEDS: METHYLPREDNISOLONE SOD SUCC 40 MG/ML VIAL IV SCH (09:16)
[2018-01-27] MEDS: HEPARIN SOD (PORCINE) 5,000 UNIT/ML VIAL SC SCH ×2 (09:17→21:50)
[2018-01-27] MEDS: TIOTROPIUM 18 MCG INH POWDER INH SCH (12:00)
[2018-01-27] MEDS: NICOTINE 7 MG PATCH TOP SCH (16:00)
[2018-01-27] MEDS: AZITHROMYCIN 500MG/NS 250 ML 250 ML IV SCH (17:07)
[2018-01-27] MEDS: ALPRAZOLAM 0.25 MG TAB PO PRN (17:13)
[2018-01-27] MEDS: INSULIN DETEMIR 100 UNIT/ML PEN SQ SCH (21:51)
[2018-01-28] VITALS (11 sets, daily range): BP systolic 119–184; BP diastolic 64–102
[2018-01-28] MEDS: ALBUTEROL/IPRATROPIUM 3 ML NEB NEB SCH ×4 (00:10→19:50)
[2018-01-28] MEDS: TIOTROPIUM 18 MCG INH POWDER INH SCH (06:00)
[2018-01-28 07:48] LABS: ANION GAP 8.7 mmol/L (8-16); BLOOD UREA NITROGEN 51 mg/dL (7-26); BUN/CREATININE RATIO 59 (6-25); CALCIUM 8.5 mg/dL (8.4-10.2); CARBON DIOXIDE 32 mmol/L (22-29); CHLORIDE 99 mmol/L (98-107); CREATININE, SERUM 0.87 mg/dL (0.57-1.11); EST GLOMERULAR FILTRATION RATE > 60 ML/MIN (60-); GLUCOSE 261 mg/dL (74-118); POTASSIUM 4.7 mmol/L (3.5-5.1); SODIUM 135 mmol/L (136-145)
[2018-01-28] MEDS: PREDNISONE 20 MG TAB PO SCH (08:07)
[2018-01-28] MEDS: CLOPIDOGREL BISULFATE 75 MG TAB PO SCH (08:07)
[2018-01-28] MEDS: DULOXETINE HCL 30 MG DELAYED RELEASE PO SCH (08:07)
[2018-01-28] MEDS: PANTOPRAZOLE SOD 40 MG TABEC PO SCH (08:07)
[2018-01-28] MEDS: CEFTRIAXONE SOD 1 GM VIAL IV SCH (08:07)
[2018-01-28] MEDS: NAPROXEN 250 MG TAB PO SCH ×2 (08:07→17:20)
[2018-01-28] MEDS: HEPARIN SOD (PORCINE) 5,000 UNIT/ML VIAL SC SCH ×2 (08:08→21:00)
[2018-01-28] MEDS: MONTELUKAST SODIUM 10 MG TAB PO SCH (08:08)
[2018-01-28] MEDS: NIFEDIPINE CR 30 MG TAB PO SCH ×2 (08:08→20:19)
[2018-01-28] MEDS: FENOFIBRATE 145 MG TAB PO SCH (08:08)
[2018-01-28] MEDS: METOPROLOL SUCCINATE 50 MG TAB XL PO SCH (08:08)
[2018-01-28] MEDS: INSULIN LISPRO 100 UNIT/1 ML 3ML VIAL SQ SCH ×4 (09:31→22:13)
[2018-01-28] MEDS: HYDROCODONE/APAP 7.5MG-325MG 1 EA TAB PO PRN ×2 (11:11→20:05)
[2018-01-28] MEDS: NICOTINE 7 MG PATCH TOP SCH (16:00)
[2018-01-28] MEDS ORDERED: HYDRALAZINE HCL 20 MG/ML VIAL IV PRN (16:00)
[2018-01-28] MEDS: AZITHROMYCIN 500MG/NS 250 ML 250 ML IV SCH (17:20)
[2018-01-28] MEDS: HYDRALAZINE HCL 25 MG TAB PO SCH (17:20)
[2018-01-28] MEDS: INSULIN DETEMIR 100 UNIT/ML PEN SQ SCH (22:13)
[2018-01-29] VITALS (10 sets, daily range): BP systolic 118–187; BP diastolic 67–88
[2018-01-29] MEDS: ALBUTEROL/IPRATROPIUM 3 ML NEB NEB SCH ×3 (02:25→18:40)
[2018-01-29] MEDS: HYDROCODONE/APAP 7.5MG-325MG 1 EA TAB PO PRN ×3 (02:51→08:15)
[2018-01-29] MEDS: NAPROXEN 250 MG TAB PO SCH ×2 (05:37→16:16)
[2018-01-29] MEDS: INSULIN LISPRO 100 UNIT/1 ML 3ML VIAL SQ SCH ×3 (07:30→16:30)
[2018-01-29] MEDS: PANTOPRAZOLE SOD 40 MG TABEC PO SCH (08:12)
[2018-01-29] MEDS: MONTELUKAST SODIUM 10 MG TAB PO SCH (08:13)
[2018-01-29] MEDS: CLOPIDOGREL BISULFATE 75 MG TAB PO SCH (08:13)
[2018-01-29] MEDS: FENOFIBRATE 145 MG TAB PO SCH (08:13)
[2018-01-29] MEDS: HYDRALAZINE HCL 25 MG TAB PO SCH ×2 (08:13→16:16)
[2018-01-29] MEDS: CEFTRIAXONE SOD 1 GM VIAL IV SCH (08:13)
[2018-01-29] MEDS: PREDNISONE 20 MG TAB PO SCH (08:13)
[2018-01-29] MEDS: NIFEDIPINE CR 30 MG TAB PO SCH (08:13)
[2018-01-29] MEDS: DULOXETINE HCL 30 MG DELAYED RELEASE PO SCH (08:13)
[2018-01-29] MEDS: HEPARIN SOD (PORCINE) 5,000 UNIT/ML VIAL SC SCH (08:14)
[2018-01-29] MEDS ORDERED: AZTREONAM 1 GM/NS 50 ML 50 ML IV SCH (09:00)
[2018-01-29] MEDS ORDERED: VANCOMYCIN 1GM/NS 250 ML 250 ML IV SCH (09:00)
[2018-01-29 09:29] LABS: BASOPHILS % 0.1 % (0.0-1.0); EOSINOPHILS # (AUTO) 0.1 (0.0-0.4); EOSINOPHILS % 1.5 % (0.0-6.0); HEMATOCRIT 33.3 % (34.2-44.1); HEMOGLOBIN 11.1 g/dL (12.0-16.0); LYMPHOCYTES # (AUTO) 3.5 (1.0-3.2); LYMPHOCYTES % 42.8 % (18.0-39.1); MEAN CORPUSCULAR HEMOGLOBIN 30.2 pg (28-32); MEAN CORPUSCULAR HGB CONC 33.3 g/dL (31-35); MEAN CORPUSCULAR VOLUME 90.5 fL (81-99); MONOCYTES # (AUTO) 0.8 (0.2-0.8); MONOCYTES % 10.2 % (4.4-11.3); NEUTROPHILS # (AUTO) 3.6 (2.1-6.9); NEUTROPHILS % 44.3 % (38.7-80.0); PLATELET COUNT 339 x10e3/uL (140-360); RED BLOOD COUNT 3.68 x10e6/uL (3.6-5.1); RED CELL DISTRIBUTION WIDTH 12.8 % (11.7-14.4)
[2018-01-29] MEDS: METHYLPREDNISOLONE SOD SUCC 40 MG/ML VIAL IV SCH ×2 (09:32→14:11)
[2018-01-29 09:51] LABS: ANION GAP 10.3 mmol/L (8-16); CALCIUM 8.2 mg/dL (8.4-10.2); CREATININE, SERUM 0.99 mg/dL (0.57-1.11); POTASSIUM 4.3 mmol/L (3.5-5.1)
[2018-01-29] MEDS ORDERED: AZTREONAM 1 GM VIAL IV SCH ×2 (10:30→14:00)
[2018-01-29] MEDS: METOPROLOL SUCCINATE 50 MG TAB XL PO SCH (11:56)
[2018-01-29] MEDS: NICOTINE 7 MG PATCH TOP SCH (15:29)
== END 2018-01-29 20:15 | disposition home or self-care (01) | DRG 190 ==
LOC: ER 13:07 → ERHOLD 16:05 → MED/SURG3 20:35
PROVIDERS: ADMIT Internal Medicine; ATTEND Internal Medicine
DX: J44.0 Chronic obstructive pulmonary disease with (acute) lower respiratory infection (principal); J15.9 Unspecified bacterial pneumonia; J96.90 Respiratory failure, unspecified, unspecified whether with hypoxia or hypercapnia; J44.1 Chronic obstructive pulmonary disease with (acute) exacerbation; R09.02 Hypoxemia; F17.210 Nicotine dependence, cigarettes, uncomplicated; R73.9 Hyperglycemia, unspecified; I25.10 Atherosclerotic heart disease of native coronary artery without angina pectoris; Z95.5 Presence of coronary angioplasty implant and graft; Z91.012 Allergy to eggs; Z88.6 Allergy status to analgesic agent; Z88.0 Allergy status to penicillin; Z88.8 Allergy status to other drugs, medicaments and biological substances; Z91.018 Allergy to other foods; R53.81 Other malaise; E87.5 Hyperkalemia; I10 Essential (primary) hypertension; J20.9 Acute bronchitis, unspecified
CPT/HCPCS: 36415; 71046; 71250; 80048; 80053; 82948; 83880; 84132; 85025; 87040; 87400; 94640; 96367; 96372; 97139; 99284; J0360; J0456; J0696; J1644; J1885; J1940; J2920; J3370; J7030

== ENCOUNTER → 2018-09-10 | Outpatient (CLI) | payer MEDICARE ==
[~2018-09-10] MED LIST changes: +ALPRAZOLAM1 MG PO; +CYMBALTA30 MG PO; +FENOFIBRATE145 MG PO; +FUROSEMIDE40 MG PO; +LOPRESSOR25 MG PO; +LOSARTAN POTASS50 MG PO; +MONTELUKAST SOD10 MG PO
--- NOTE | 2018-09-10 19:27 | Diagnostic Imaging Report ---
Renal Scan Reason for exam: 68 F with hematuria and hydronephrosis. Chronic kidney disease. Bladder cancer and cancer of uterus; mass removed from bladder 07/2018. Radiopharmaceutical: Tc-99m MAG3 10.7 mCi Report: After administration of the radiopharmaceutical, dynamic images of the kidneys were obtained through 40 minutes. LEFT KIDNEY: Perfusion is prompt. The left kidney has a reniform shape with mild to moderate thinning of the renal cortex. Extraction of tracer from the blood pool is decreased. Clearance of tracer from the renal parenchyma begins promptly but is not complete by the end of the study. Caliectasis is present throughout the kidney although the real pelvis is not dilated. Increased pooling of tracer is seen in the dilated calices. Some but minimal drainage of tracer is seen from the pelvicaliceal system although the renogram does flatten after 30 minutes. No stasis of tracer is seen in the left ureter. RIGHT KIDNEY: Perfusion is delayed. The kidney has a distorted reniform shape with marked thinning of the lower pole. The kidney is reduced in size. Extraction of tracer from the blood pool is decreased. Clearance of tracer from the renal parenchyma begins promptly but is not complete by the end of the study. Very mild dilation of the calices is present but the renal pelvis does not appear dilated. Some pooling of tracer is seen within the dilated calices. Drainage of tracer from the pelvicaliceal system is adequate. No stasis of tracer is seen in the right ureter. DIFFERENTIAL RENAL FUNCTION: Left kidney 60% and right kidney 40% (normal 43-57%). Impression: 1. Scan evidence of medical renal disease in the left kidney. 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 Cannot assess for obstruction as the pelvicaliceal system does not appear to fill to capacity. Obstruction, however, is not suspected. 2. Loss of renal parenchyma in the lower half of the kidney as well as the smaller size of the right kidney accounts for the decreased differential function of 40%. Medical renal disease is present in the right kidney. Very mild caliectasis is present. Drainage of the pelvicalyceal system is adequate. Signed by: Dr. Alecia Dunlap M.D. on 09/10/2018 7:23 PM
== END ==
LOC: NM 08:29
PROVIDERS: ATTEND Urology
DX: R33.9 Retention of urine, unspecified (principal); T19.1XXA Foreign body in bladder, initial encounter
CPT/HCPCS: 78707; A9562